=== PATIENT | male | born 1970 | race Caucasian/White ===

== ENCOUNTER 2020-05-21 19:34 | Emergency (ER) | payer BC ==
[2020-05-21] MEDS ORDERED: MULTIVITAMIN1 SGL PO (19:52)
[2020-05-21 20:15] LABS: EOS # 0.2 (0.04-0.40); EOS % 3.3 % (0.0-4.0); HEMATOCRIT 45.5 % (42.0-52.0); HEMOGLOBIN 15.4 g/dL (13.5-18.0); LYMPH# 1.4 (1.50-4.00); MEAN CELL VOLUME 88 fl (78-100); MEAN CORPUSCULAR HEMOGLOBIN 30 pg (27-31); MEAN CORPUSCULAR HGB CONC 34 g/dL (33-37); MONO # 0.6 (0.20-0.80); NEU # 3.6 (1.40-6.50); PLATELET COUNT 300 K/mm3 (130-400); RED BLOOD COUNT 5.17 M/mm3 (4.20-5.60); RED CELL DISTRIBUTION WIDTH 11.9 % (11.5-14.5); WHITE BLOOD COUNT 5.8 K/mm3 (4.8-10.8)
[2020-05-21 20:23] LABS: ALBUMIN 4.5 g/dL (3.5-5.0); POTASSIUM 3.7 mmol/L (3.5-5.1); SODIUM 143 mmol/L (136-145)
[2020-05-21 20:24] LABS: CALCIUM 9.3 mg/dL (8.3-10.5)
[2020-05-21 20:26] LABS: GLUCOSE 111 mg/dL (75-110); TOTAL PROTEIN 7.5 g/dL (6.4-8.3)
[2020-05-21 20:27] LABS: CARBON DIOXIDE 22 mmol/L (22-29); PARTIAL THROMBOPLASTIN TIME 22.3 SECONDS (21.0-32.0)
[2020-05-21 20:28] LABS: TOTAL BILIRUBIN 0.4 mg/dL (0.2-1.2)
[2020-05-21 20:31] LABS: AST-SGOT 25 U/L (5-34)
[2020-05-21 20:32] LABS: ALT/SGPT 27 U/L (0-55)
[2020-05-21 20:39] LABS: TROPONIN-I < 0.03 ng/mL (<0.030)
[2020-05-21 20:53] LABS: URINE APPEARANCE CLEAR; URINE COLOR YELLOW
[2020-05-21 20:54] LABS: PH-URINE 5.5 (5.0 - 8.0); URINE BILIRUBIN NEGATIVE (NEGATIVE); URINE BLOOD NEGATIVE (NEGATIVE); URINE GLUCOSE NEGATIVE (NEGATIVE); URINE KETONE NEGATIVE (NEGATIVE); URINE LEUKOCYTE ESTERASE NEGATIVE (NEGATIVE); URINE NITRATE NEGATIVE (NEGATIVE); URINE PROTEIN(semi-quant) TRACE mg/dL (NEGATIVE); URINE UROBILINOGEN NORMAL (NORMAL); URINE WBC 0-1 /hpf (0-3)
[2020-05-21 22:08] VITALS: BP 139/107
== END 2020-05-21 22:08 | disposition short-term general hospital (02) ==
LOC: ED 19:34
PROVIDERS: Nurse Practitioner
DX: I63.9 Cerebral infarction, unspecified (principal); F17.290 Nicotine dependence, other tobacco product, uncomplicated; Z20.828 Contact with and (suspected) exposure to other viral communicable diseases; Z85.820 Personal history of malignant melanoma of skin
CPT/HCPCS: J7030

== ENCOUNTER → 2020-09-15 | Outpatient (CLI) | payer BC ==
[~2020-09-15] MED LIST: MULTIVITAMIN1 SGL PO
== END ==
LOC: LAB 12:38
DX: Z20.822 Contact with and (suspected) exposure to COVID-19 (principal)